=== PATIENT | female | born 1975 | race Caucasian/White ===

== ENCOUNTER 2018-11-29 13:06 | Inpatient (IN) | payer OTHER ==
[2018-11-29] MEDS: SOD CHLORIDE 0.9% 1,000 ML IV (14:50)
[2018-11-29] MEDS: morphine 2 MG INJ IV ×2 (14:50→15:01)
[2018-11-29] MEDS: ONDANSETRON 4 MG INJ IV ×2 (14:50→15:01)
[2018-11-29 14:52] LABS: ADD MAN DIFF? NO
[2018-11-29 14:55] LABS: BASOPHILS % 0.4 % (0.0-2.0); EOSINOPHILS # 0.2 10^3/ul (0.0-0.5); EOSINOPHILS % 2.8 % (0.0-7.0); HEMATOCRIT 40.8 % (37.0-47.0); LYMPHOCYTES # 2.9 10^3/ul (0.8-2.9); LYMPHOCYTES % 36.9 % (15.0-51.0); MEAN CORPUSCULAR HEMOGLOBIN 26.9 pg (29.0-33.0); MEAN CORPUSCULAR HGB CONC 31.9 g/dl (32.0-37.0); MEAN CORPUSCULAR VOLUME 84.5 fl (82.0-101.0); MEAN PLATELET VOLUME 10.5 fl (7.4-10.4); MONOCYTE # 0.5 10^3/ul (0.3-0.9); MONOCYTES % 5.8 % (0.0-11.0); NEUTROPHIL # 4.2 10^3/ul (1.6-7.5); NEUTROPHILS % 53.8 % (39.0-77.0); PLATELET COUNT 287 10^3/UL (140-415); RED BLOOD COUNT 4.83 10^6/ul (4.20-5.40); RED CELL DISTRIBUTION WIDTH 13.1 % (11.5-14.5)
[2018-11-29 14:55] LABS: WHITE BLOOD COUNT 7.8 10^3/ul (4.8-10.8)
[2018-11-29] MEDS: KETOROLAC 30 MG INJ IV (14:57)
[2018-11-29 15:17] LABS: ALANINE AMINOTRANSFERASE 102 IU/L (13-69); ALKALINE PHOSPHATASE 114 IU/L (42-121); ANION GAP 8 (5-13); ASPARTATE AMINO TRANSFERASE 47 IU/L (15-46); BILIRUBIN,INDIRECT 0.9 mg/dl (0-1.1); BILIRUBIN,TOTAL 0.9 mg/dl (0.2-1.3); BLOOD UREA NITROGEN 8 mg/dl (7-20); CALCIUM 9.5 mg/dl (8.4-10.2); CARBON DIOXIDE 30 mmol/L (21-31); CHLORIDE 106 mmol/L (97-110); CREATININE 0.46 mg/dl (0.44-1.00); Estimated GFR > 60 mL/min (>60); GLUCOSE 94 mg/dl (70-220); POTASSIUM 4.6 mmol/L (3.5-5.1); SODIUM 144 mmol/L (135-144)
[2018-11-29 15:18] LABS: ALBUMIN 4.6 g/dl (3.3-4.9); ALBUMIN/GLOBULIN RATIO 1.31; TOTAL PROTEIN 8.1 g/dl (6.1-8.1)
[2018-11-29] MEDS: SOD CHLORIDE 0.9% 100 ML (17:03)
[2018-11-29] MEDS: IOHEXOL 300MG/ML 150 ML BTL (17:03)
[2018-11-29] MEDS ORDERED: ONDANSETRON 4 MG INJ IV ×2 (19:00→19:30)
[2018-11-29] MEDS ORDERED: ACETAMINOPHEN 325 MG TAB PO (19:00)
[2018-11-29] MEDS ORDERED: NACL 0.9% 3 ML SYG IV (19:30)
[2018-11-29] MEDS ORDERED: HYDROCODONE/APAP (5/325) TAB PO (19:30)
[2018-11-29] MEDS ORDERED: morphine 2 MG INJ IV (19:30)
[2018-11-29] MEDS ORDERED: LEVOFLOXACIN 750MG/D5W (PMX) 150 ML IVPB (19:30)
[2018-11-29] MEDS: CIPROFLOXACIN HCL OTIC DROP 0.25 ML LEFT EAR (20:00)
[2018-11-29] MEDS: HYDROCODONE/APAP (5/325) TAB PO (21:38)
[2018-11-29] MEDS: MEROPENEM 1 GM/50ML(PMX) 50 ML IVPB (22:16)
[2018-11-30] MEDS: MEROPENEM 1 GM/50ML(PMX) 50 ML IVPB ×3 (05:35→21:45)
[2018-11-30] MEDS: ACETAMINOPHEN 325 MG TAB PO (05:39)
[2018-11-30 05:56] LABS: ADD MAN DIFF? NO
[2018-11-30 06:12] LABS: BASOPHILS % 0.5 % (0.0-2.0); EOSINOPHILS # 0.3 10^3/ul (0.0-0.5); EOSINOPHILS % 5.6 % (0.0-7.0); HEMATOCRIT 36.3 % (37.0-47.0); HEMOGLOBIN 11.5 g/dl (12.0-16.0); LYMPHOCYTES # 3.2 10^3/ul (0.8-2.9); LYMPHOCYTES % 57.6 % (15.0-51.0); MEAN CORPUSCULAR HEMOGLOBIN 27.3 pg (29.0-33.0); MEAN CORPUSCULAR HGB CONC 31.7 g/dl (32.0-37.0); MEAN PLATELET VOLUME 10.5 fl (7.4-10.4); MONOCYTE # 0.4 10^3/ul (0.3-0.9); NEUTROPHIL # 1.6 10^3/ul (1.6-7.5); NEUTROPHILS % 29.1 % (39.0-77.0); PLATELET COUNT 235 10^3/UL (140-415); RED BLOOD COUNT 4.22 10^6/ul (4.20-5.40)
[2018-11-30 06:12] LABS: WHITE BLOOD COUNT 5.5 10^3/ul (4.8-10.8)
[2018-11-30 07:02] LABS: ANION GAP 4 (5-13); BLOOD UREA NITROGEN 10 mg/dl (7-20); CALCIUM 8.8 mg/dl (8.4-10.2); CARBON DIOXIDE 28 mmol/L (21-31); CHLORIDE 109 mmol/L (97-110); CREATININE 0.51 mg/dl (0.44-1.00); Estimated GFR > 60 mL/min (>60); GLUCOSE 95 mg/dl (70-220); MAGNESIUM 2.1 mg/dl (1.7-2.5); POTASSIUM 4.5 mmol/L (3.5-5.1); SODIUM 141 mmol/L (135-144)
[2018-11-30] MEDS: CIPROFLOXACIN HCL OTIC DROP 0.25 ML LEFT EAR ×2 (09:12→21:02)
[2018-11-30] MEDS: ENOXAPARIN 40 MG/0.4 ML SYG SC (09:14)
[2018-11-30] MEDS: HYDROCODONE/APAP (5/325) TAB PO (13:51)
[2018-12-01] MEDS: MEROPENEM 1 GM/50ML(PMX) 50 ML IVPB (05:47)
[2018-12-01] MEDS: CIPROFLOXACIN HCL OTIC DROP 0.25 ML LEFT EAR (09:02)
[2018-12-01] MEDS: ENOXAPARIN 40 MG/0.4 ML SYG SC (09:07)
== END 2018-12-01 12:00 | disposition home or self-care (01) | DRG 153 ==
LOC: FTE 13:06 → 2NE 18:59
DX: H70.92 Unspecified mastoiditis, left ear (principal)
CPT/HCPCS: 70480; 80048; 80053; 81025; 83735; 85025; 96361; 96374; 99285-25